=== PATIENT | male | born 1970 | race Caucasian/White ===

== ENCOUNTER 2024-02-16 08:41 | Emergency (ER) | payer OTHER, SELFPAY ==
[2024-02-16 08:48] VITALS: BP 129/88; PULSE 71; RESP 18; TEMP 35.9; O2SAT 98
--- NOTE | 2024-02-16 09:05 | ED.SKABFB ---
HPI - Skin/Abscess/Foreign Bdy General Chief complaint: Skin/Abscess/Foreign Body Stated complaint: Rash History of Present Illness HPI narrative: Patient presents with a shingles outbreak. Patient states he has had shingles in the past and they have reoccurred. Patient presents with shingles to his left side. Related Data Allergies Allergy/AdvReac Type Severity Reaction Status Date / Time No Known Allergies Allergy Verified 02/16/24 09:03 Review of Systems Review of Systems: CONSTITUTIONAL: Denies chills, or sweats. Reports fever and generalized body aches EYES: Denies visual changes, redness, or discharge. ENT: Denies otalgia. Reports nasal congestion runny nose and sore throat CARDIOVASCULAR: Denies chest pain, palpitations, or edema. RESPIRATORY: Denies dyspnea. Reports occasional cough GASTROINTESTINAL: Denies abdominal pain, nausea, vomiting, or diarrhea. GENITOURINARY: Denies dysuria or hematuria. SKIN: Denies rash or itching. MUSCULOSKELETAL: Denies back pain, joint pain, or myalgia. Reports generalized body aches NEUROLOGIC: Denies headache, numbness, or weakness. PSYCHIATRIC: Denies anxiety or depression. [facility] Comments At time of signature, agree with nursing past medical, surgical, social and family history. There is no relevant family history pertinent to the presenting complaint Exam Narrative: The patient is a well-developed, well-nourished in no acute distress. SKIN: Skin is warm and dry without erythema, swelling or exudate. There is good turgor. No tenting. HEAD: Atraumatic. Normocephalic. No temporal or scalp tenderness. EYES: Moist and bright. Sclera and conjunctivae normal. No discharge. PERRLA. Extraocular motions intact. Gross visual acuity intact. EARS: Pinna is normal shape and contour. Clear external auditory canals. TM pearly kaur with good cone of light, no erythema or suppuration. Bilateral cerumen noted no gross hearing deficit. NOSE: pink, moist mucosa with good air movement. Clear rhinorrhea without nasal flaring. Septum midline. Mouth: moist mucous membranes. THROAT; mild erythema noted to posterior oropharynx with moderate postnasal drainage. Without exudate or ulceration.. Uvula midline. Normal movement of soft palate. NECK: Supple and nontender with full range of motion without discomfort. No meningeal signs. LUNGS: Equal and bilateral breath sounds without wheezes, rales or rhonchi. CHEST: The chest wall is without retractions or use of accessory muscles. HEART: Has a regular rate and rhythm without murmur, gallops, click or rub. ABDOMEN: Soft, nontender with positive active bowel sounds. No rebound tenderness. EXTREMITIES: Without cyanosis, clubbing or edema. Equal 2+ distal pulses and 2 second capillary refill noted. left side rash vesicular consistent wwith shingles doesnot cross the dermatome NEUROLOGIC: alert, active, . The patient moves all extremities with normal muscle strength. Normal muscle tone is noted. Normal coordination is noted. NO focal neurological findings noted. Course Course Level of Care: Express Care Visit Vital Signs Vital signs: Vital Signs Temperature 35.9 C L 02/16/24 08:48 Pulse Rate 71 02/16/24 08:48 Respiratory Rate 18 02/16/24 08:48 Blood Pressure 129/88 02/16/24 08:48 Pulse Oximetry 98 02/16/24 08:48 Oxygen Delivery Room Air 02/16/24 08:48 Temperature 35.9 C L 02/16/24 08:48 Pulse Rate 71 02/16/24 08:48 Respiratory Rate 18 02/16/24 08:48 Blood Pressure 129/88 02/16/24 08:48 Pulse Oximetry 98 02/16/24 08:48 Oxygen Delivery Room Air 02/16/24 08:48 Discharge Plan Discharge Clinical Impression: Shingles rash Patient Disposition: Home, Self-Care Condition: Stable Instructions: Shingles (ED) Additional Instructions: Take medication as prescribed until gone Follow-up with PCP as needed If any new or worsening symptoms please go to ER immediately further evaluation treatment Prescriptions: New prednisone 20 mg tablet 40 mg PO DAILY 5 Days Qty: 10 0RF acyclovir 800 mg tablet 800 mg PO TID 7 Days Qty: 21 0RF Follow-up/Referrals: Eddie,Gennaro Moon MD [Primary Care Provider] -
== END 2024-02-16 09:30 | disposition home or self-care (01) ==
PROVIDERS: Emergency Provider Nurse Practitioner Family; PCP Internal Medicine
DX: B02.9 Zoster without complications (principal)
CPT/HCPCS: 99203; G0463